=== PATIENT | female | born 1965 | race Caucasian/White ===

== ENCOUNTER → 2021-01-04 | Outpatient (CLI) | payer BC, OTHER | LOC: KOH-I 08:53 | DX: R05 Cough (principal); R06.02 Shortness of breath; U07.1 COVID-19; R53.83 Other fatigue; R91.8 Other nonspecific abnormal finding of lung field | CPT/HCPCS: 71046 ==

== ENCOUNTER → 2021-01-24 | Outpatient (CLI) | payer BC, OTHER | LOC: EXRD 14:05 | DX: R93.89 Abnormal findings on diagnostic imaging of other specified body structures (principal); R91.1 Solitary pulmonary nodule | CPT/HCPCS: 71046 ==